=== PATIENT | male | born 1995 | race Caucasian/White ===

== ENCOUNTER 2020-02-26 22:42 | Emergency (ER) | payer SELFPAY ==
[~2020-02-26] VITALS: Ht 167.6 cm; Wt 86.2 kg
--- NOTE | 2020-02-26 22:42 | NUR ---
JLUIS DAY, PREBOOK. TAKEN TO CHAIR C
[2020-02-26 22:48] VITALS: BP 141/79
--- NOTE | 2020-02-26 22:51 | NUR ---
PT TAKEN TO XRAY
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
--- NOTE | 2020-02-26 22:58 | NUR ---
PT RETURN FROM XRAY
--- NOTE | 2020-02-26 23:18 | NUR ---
Dr. Nails examining patient.
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
--- NOTE | 2020-02-26 23:26 | NUR ---
PATIENT BIB [place] [employer]. PATIENT EXAMINED BY DR. MERCHANT. PATIENT MEDICALLY CLEARED AND RELEASED IN CUSTODY IN STABLE CONDITION. ORIGINAL PRE-BOOK FORM GIVEN TO OFFICER INEZ.
[2020-02-26 23:27] VITALS: BP 141/79
== END 2020-02-26 23:26 ==
LOC: MED 22:42
DX: S93.402A Sprain of unspecified ligament of left ankle, initial encounter (principal); Z02.89 Encounter for other administrative examinations; V89.2XXA Person injured in unspecified motor-vehicle accident, traffic, initial encounter; Y93.89 Activity, other specified; Y92.89 Other specified places as the place of occurrence of the external cause; Y99.8 Other external cause status
CPT/HCPCS: 73610; 99283